=== PATIENT | female | born 1970 | race Caucasian/White ===

== ENCOUNTER 2016-11-06 20:55 | Emergency (ER) | payer OTHER ==
[2016-11-06 21:06] VITALS: BP 123/79
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
== END 2016-11-06 21:55 | disposition home or self-care (01) ==
LOC: UCEAST 20:55
DX: S61.211A Laceration without foreign body of left index finger without damage to nail, initial encounter (principal); W26.0XXA Contact with knife, initial encounter; Y93.89 Activity, other specified; Y92.9 Unspecified place or not applicable; Z88.1 Allergy status to other antibiotic agents; F17.210 Nicotine dependence, cigarettes, uncomplicated
CPT/HCPCS: 12001; 99211; 99212; G0463

== ENCOUNTER 2018-07-04 18:21 | Emergency (ER) | payer SELFPAY ==
[2018-07-04 18:49] VITALS: BP 100/68
--- NOTE | 2018-07-04 19:41 | UC ---
Hand/Wrist HPI - HPI Summary HPI Summary: 47-year-old woman comes in to clinic today with a chief complaint of right wrist and thumb pain after falling on outstretched hand today. Pain she slipped on the snow. Denies any other injury. Pain is worse with movement and palpation it's better with rest. No weakness or numbness or laceration. - History Of Current Complaint Chief Complaint: UCUpperExtremity Stated Complaint: WRIST INJURY Time Seen by Provider: 07/04/18 19:27 Hx Last Menstrual Period: 08/15/14 Pain Intensity: 6 - Allergies/Home Medications Allergies/Adverse Reactions: Allergies Allergy/AdvReac Type Severity Reaction Status Date / Time cephalexin Allergy Swelling Verified 07/04/18 18:49 Home Medications: Home Medications Ibuprofen TAB* [Advil TAB*] 400 mg PO ONCE PRN 07/04/18 [History Confirmed 07/04] PMH/Surg Hx/FS Hx/Imm Hx Previously Healthy: Yes - Surgical History Surgical History: Yes Surgery Procedure, Year, and Place: hernias, appy, tubal ligation - Family History Known Family History: Positive: Unknown, Other - ANEMIA - Social History Alcohol Use: Rare Substance Use Type: None Smoking Status (MU): Current Every Day Smoker Type: Cigarettes Amount Used/How Often: 1 pack per week Have You Smoked in the Last Year: Yes - Immunization History Most Recent Tetanus Shot: unknown Review of Systems All Other Systems Reviewed And Are Negative: Yes Constitutional: Positive: Negative Skin: Positive: Negative Eyes: Positive: Negative ENT: Positive: Negative Respiratory: Positive: Negative Cardiovascular: Positive: Negative Gastrointestinal: Positive: Negative Motor: Positive: Negative Neurovascular: Positive: Negative Musculoskeletal: Positive: Other: - SEE HPI Neurological: Positive: Negative Psychological: Positive: Negative Is Patient Immunocompromised?: No Physical Exam Triage Information Reviewed: Yes Appearance: Well-Appearing, No Pain Distress, Well-Nourished Vital Signs: Initial Vital Signs Temp 97.5 F 07/04/18 18:46 Pulse 67 07/04/18 18:46 Resp 16 07/04/18 18:46 BP 100/68 07/04/18 18:46 Pulse Ox 100 07/04/18 18:46 Vital Signs Reviewed: Yes Eye Exam: Normal Eyes: Positive: Conjunctiva Clear Neck exam: Normal Neck: Positive: Supple Musculoskeletal: Positive: Other: - Right wrist is tender to palpation at the distal radius. The thumb is tender to palpation the proximal aspect. The snuffbox is nontender to palpation. Pain with range of motion of the thumb or the wrist. Normal radial pulses normal capillary refill no sensation deficits. There is some swelling at the distal radius. Neurological: Positive: Alert, Muscle Tone Normal Psychological Exam: Normal Psychological: Positive: Normal Response To Family, Age Appropriate Behavior Skin Exam: Normal Hand/Wrist Course/Dx - Course Course Of Treatment: I do not see any fracture on the x-rays. Radiologist reading is pending. Patient was placed a thumb spica by nursing she was neurovascularly intact after the placement of the splinting. I discussed the x- rays with the patient. I also discussed the possibility of a navicular injury and that if she does not completely improved she needed to get reevaluated. - Differential Dx/Diagnosis Provider Diagnosis: Sprain of right wrist, Sprain of right thumb Discharge - Sign-Out/Discharge Documenting (check all that apply): Patient Departure All imaging exams completed and their final reports reviewed: No - Discharge Plan Condition: Stable Disposition: HOME Patient Education Materials: Wrist Sprain (ED), Finger Sprain (ED) Referrals: Gilbert Solorzano MD [Medical Doctor] - Additional Instructions: FOLLOW UP WITH DR SOLORZANO, ORTHOPEDICS, IF NOT COMPLETELY IMPROVED. GET RECHECKED FOR ANY WORSENING OF YOUR CONDITION OR QUESTIONS OR CONCERNS. THE RADIOLOGIST READING FOR YOUR X-RAY WILL BE DONE TOMORROW. IF THERE IS ANY CHANGE IN THE X-RAY, WE WILL CALL YOU WITH THE FINAL RESULTS. - Billing Disposition and Condition Condition: STABLE Disposition: Home
--- NOTE | 2018-07-05 10:45 | UC ---
- EKG/XRAY/CT Xray Comments: wet read correct Course/Dx - Diagnoses Provider Diagnoses: Sprain of right wrist, Sprain of right thumb Discharge - Sign-Out/Discharge Documenting (check all that apply): Post-Discharge Follow Up All imaging exams completed and their final reports reviewed: Yes - Discharge Plan Condition: Stable Disposition: HOME Patient Education Materials: Finger Sprain (ED), Wrist Sprain (ED) Referrals: Gilbert Solorzano MD [Medical Doctor] - Additional Instructions: FOLLOW UP WITH DR SOLORZANO, ORTHOPEDICS, IF NOT COMPLETELY IMPROVED. GET RECHECKED FOR ANY WORSENING OF YOUR CONDITION OR QUESTIONS OR CONCERNS. THE RADIOLOGIST READING FOR YOUR X-RAY WILL BE DONE TOMORROW. IF THERE IS ANY CHANGE IN THE X-RAY, WE WILL CALL YOU WITH THE FINAL RESULTS. - Billing Disposition and Condition Condition: STABLE Disposition: Home
== END 2018-07-04 20:00 | disposition home or self-care (01) ==
LOC: UCEAST 18:21
DX: S63.501A Unspecified sprain of right wrist, initial encounter (principal); S63.601A Unspecified sprain of right thumb, initial encounter; W00.0XXA Fall on same level due to ice and snow, initial encounter; Y93.9 Activity, unspecified; Z88.1 Allergy status to other antibiotic agents; F17.210 Nicotine dependence, cigarettes, uncomplicated
CPT/HCPCS: 99212; G0463